=== PATIENT | female | born 1975 | race Caucasian/White ===

== ENCOUNTER 2016-05-08 10:06 | Emergency (ER) | payer OTHER ==
[~2016-05-08] VITALS: Ht 157.5 cm; Wt 61.9 kg
[~2016-05-08 10:06] MED LIST: ALEVE220 MG PO; BACLOFEN10 MG PO; BACTRIM,SEPT1 TABLET PO; CLINDAMYCIN HC300 MG PO; DILAUDID2 MG PO; KEFLEX500 MG PO; MEDROL DOSEPAK4 MG PO; MOTRIN IB200 MG PO; NAPROXEN500 MG PO; PAMELOR10 MG PO; PERCOCET 5/31 TABLET PO; PREDNISONE20 MG PO; PREDNISONE50 MG PO; TYLENOL EXTRA500 MG PO; ZOFRAN ODT4 MG PO
[2016-05-08 12:09] VITALS: BP 131/79
== END 2016-05-08 12:10 | disposition home or self-care (01) ==
LOC: EME 10:06
DX: S63.502A Unspecified sprain of left wrist, initial encounter (principal); W22.09XA Striking against other stationary object, initial encounter; Z88.8 Allergy status to other drugs, medicaments and biological substances; Z88.5 Allergy status to narcotic agent
CPT/HCPCS: 73110; 73130; 99281; 99283

== ENCOUNTER 2017-07-01 16:10 | Emergency (ER) | payer OTHER ==
[~2017-07-01] VITALS: Ht 157.5 cm; Wt 63.9 kg
[2017-07-01 19:30] LABS: APPEARANCE CLEAR ((CLEAR)); BILIRUBIN NEGATIVE; BLOOD NEGATIVE; COLOR YELLOW ((YELLOW)); GLUCOSE (STRIP) NEGATIVE; KETONES 20; LEUKOCYTES NEGATIVE; NITRITE NEGATIVE; PROTEIN (STRIP) NEGATIVE; UROBILINOGEN 0.2 MG/DL (0.2-1.0)
[2017-07-01 19:32] LABS: HEMATOCRIT 41.2 % (36.0-46.0); HEMOGLOBIN 14.5 G/DL (11.9-15.5); MCH 32.6 PG (29.0-34.0); MCHC 35.2 G/DL (30.0-36.0); MCV 92.6 FL (83-99); PLATELET COUNT 200 K/uL (156-360); RBC DIS.WIDTH-CV 11.8 % (11.8-14.6); RBC DIS.WIDTH-SD 40.1 % (39-53); RED BLOOD COUNT 4.45 M/uL (3.80-5.20); WHITE BLOOD COUNT 8.9 K/uL (4.1-10.2)
[2017-07-01 19:40] LABS: CHLORIDE 106 mEq/L (99-109); POTASSIUM 4.5 mEq/L (3.7-5.4); SODIUM 140 mEq/L (136-147)
[2017-07-01 19:41] LABS: MAGNESIUM 2.2 mg/dL (1.3-2.7)
[2017-07-01 19:42] LABS: GLUCOSE 89 mg/dL (70-99)
[2017-07-01 19:45] LABS: COCAINE NEGATIVE (150 ng/mL); METHAMPHETAMINE NEGATIVE (500 ng/mL); OPIATES (MORPHINE) NEGATIVE (100 ng/mL); PHENCYCLIDINE NEGATIVE (25 ng/mL); THC CANNABINOIDS NEGATIVE (50 ng/mL)
[2017-07-01 19:46] LABS: CREATININE 0.8 mg/dL (0.6-1.3); GFR ESTIMATE (CALCULATED) > 59 mL/min/
[2017-07-01 19:46] LABS: AMPHETAMINE NEGATIVE (500 ng/mL); BARBITURATES NEGATIVE (200 ng/mL); BENZODIAZEPINES NEGATIVE (150 ng/mL); BUPRENORPHINE NEGATIVE (10 ng/mL); METHADONE NEGATIVE (200 ng/mL); OXYCODONE NEGATIVE (100 ng/mL); PROPOXYPHENE NEGATIVE (300 ng/mL); TRICYCLIC ANTIDEPRESSANTS NEGATIVE (300 ng/mL)
[2017-07-01 19:47] LABS: UREA NITROGEN (BUN) 9 mg/dL (9-23)
[2017-07-01 19:48] LABS: CREATINE KINASE 56 IU/L (1-294)
[2017-07-01] MEDS ORDERED: ULTRACET1 TABLET PO (19:54)
[2017-07-01] MEDS ORDERED: MOTRIN800 MG PO (19:54)
[2017-07-01] MEDS ORDERED: VALIUM5 MG PO (19:54)
[2017-07-01 20:17] VITALS: BP 114/76
== END 2017-07-01 20:17 | disposition home or self-care (01) ==
LOC: EME 16:10
PROVIDERS: Physician Assistant
DX: M62.838 Other muscle spasm (principal); I73.00 Raynaud's syndrome without gangrene
CPT/HCPCS: 80048; 81003; 82550; 83735; 85027; 99281; 99283